=== PATIENT | female | born 1985 | race Caucasian/White ===

== ENCOUNTER 2020-07-18 11:50 | Outpatient (CLI) | payer SELFPAY ==
[~2020-07-18] VITALS: Ht 167.6 cm; Wt 68.1 kg
[2020-07-18 12:39] VITALS: BP 111/65
== END 2020-07-18 13:26 | disposition home or self-care (01) ==
LOC: LDOP 11:50
PROVIDERS: ATTEND Student in an Organized Health Care Education/Training Program
DX: O42.92 Full-term premature rupture of membranes, unspecified as to length of time between rupture and onset of labor (principal); Z3A.39 39 weeks gestation of pregnancy
CPT/HCPCS: 59025; 87081; 89060; Q0114